=== PATIENT | female | born 1985 | race Caucasian/White ===

== ENCOUNTER 2025-03-13 16:38 | Emergency (ER) | payer MEDICARE, MEDICAID ==
[~2025-03-13] VITALS: Ht 162.6 cm; Wt 72.7 kg
[~2025-03-13 16:38] MED LIST: BUPR-344 PO
[2025-03-13 16:44] VITALS: TEMP 98.5
[2025-03-13] MEDS: OxyCODONE HCL 5 MG IR TABLET PO ONE (17:10)
[2025-03-13] MEDS: ACETAMINOPHEN 500 MG TABLET PO ONE (17:11)
[2025-03-13] MEDS: LIDOCAINE 5% TRANSDERMAL PATCH TD ONE (17:11)
[2025-03-13 20:10] VITALS: BP 146/109; PULSE 81; RESP 20; O2SAT 99
== END 2025-03-13 20:12 | disposition home or self-care (01) ==
LOC: EMS 16:52
DX: S20.212A Contusion of left front wall of thorax, initial encounter (principal); F12.90 Cannabis use, unspecified, uncomplicated; F15.90 Other stimulant use, unspecified, uncomplicated; N18.6 End stage renal disease; R07.81 Pleurodynia; M54.2 Cervicalgia; Z99.2 Dependence on renal dialysis; Z79.899 Other long term (current) drug therapy; V89.2XXA Person injured in unspecified motor-vehicle accident, traffic, initial encounter; Y92.410 Unspecified street and highway as the place of occurrence of the external cause; Y93.89 Activity, other specified; Y99.8 Other external cause status
CPT/HCPCS: 70450; 71250; 72125; 72128; 72131; 72192; 74150; 99284

== ENCOUNTER 2025-06-23 15:49 | Emergency (ER) | payer MEDICARE, MEDICAID ==
[~2025-06-23] VITALS: Ht 162.6 cm; Wt 73.0 kg
[2025-06-23 16:01] VITALS: BP 102/80; PULSE 73; RESP 18; TEMP 97.3; O2SAT 99
[2025-06-23 16:34] LABS: PLATELET COUNT (AUTO) 234 K/uL (150-450); RED BLOOD CELL COUNT(AUTO) 3.19 MIL/uL (4.00-5.20); RED CELL DISTRIBUTION WIDTH 13.6 % (11.5-14.5); WHITE BLOOD COUNT (AUTO) 5.1 K/uL (4.5-11.0)
[2025-06-23 16:46] LABS: CALCIUM, TOTAL 7.6 mg/dL (8.8-10.5); CREATININE 8.67 mg/dL (0.60-1.30); GLOMERULAR FILTR. RATE CALC 5.0 mL/min (>60); GLUCOSE,RANDOM 93.0 mg/dL (70-110); SODIUM SERUM 140.0 mmol/L (136-145); UREA NITROGEN, BLOOD 40.0 mg/dL (7-18)
[2025-06-23 16:52] LABS: TROPONIN I-HIGH SENSITIVITY 27 ng/L (<51)
== END 2025-06-23 18:56 | disposition left against medical advice (07) ==
LOC: EMS 15:49
DX: R55 Syncope and collapse (principal); F41.9 Anxiety disorder, unspecified; E87.5 Hyperkalemia; N18.6 End stage renal disease; F12.90 Cannabis use, unspecified, uncomplicated; F15.90 Other stimulant use, unspecified, uncomplicated; Z79.899 Other long term (current) drug therapy; Z99.2 Dependence on renal dialysis
CPT/HCPCS: 80048; 84484; 85025; 93005; 99291